=== PATIENT | female | born 1960 | race American Indian/Alaskan Native ===

== ENCOUNTER 2016-09-23 22:36 | Emergency (ER) | payer MEDICARE ==
[2016-09-23] MEDS ORDERED: TYLENOL PO ONE (23:54)
--- NOTE | 2016-09-24 03:39 | Emergency Department Report ---
- General Chief Complaint: Sore Throat Stated Complaint: FLU LIKE SYMPTOMS Time Seen by Provider: 09/24/16 02:41 Source: patient Mode of arrival: Ambulatory Limitations: No Limitations - History of Present Illness Initial Comments: 56 y/o female complain of sore throat and headache x 2 weeks .pt state she having sinus infection and has been taking over the counter robitussin dm and theraflu without any relief MD Complaint: cough, sore throat Onset/Timin -: week(s) Severity: mild Severity scale (0 -10): 5 Quality: aching Consistency: constant Improves With: nothing Worsens With: nothing Associated Symptoms: denies other symptoms - Related Data Home Medications Medication Instructions Recorded Confirmed Last Taken Losartan/Hydrochlorothiazide 1 each PO DAILY 07/28/16 07/28/16 07/28/16 [Losartan-Hctz 50-12.5 mg Tab] Potassium Chloride [Klor-Con M10] 20 meq PO BID 07/28/16 07/28/16 07/28/16 Previous Rx's Medication Instructions Recorded Last Taken Type Cyclobenzaprine [Flexeril] 10 mg PO TID PRN #20 tablet 07/29/16 Unknown Rx guaiFENesin DM [Robitussin Dm] 10 ml PO Q6HR #1 bottle 07/29/16 Unknown Rx Acetaminophen/Codeine [Tylenol #3] 1 tab PO Q6H #15 tablet 09/24/16 Unknown Rx Amoxicillin/K Clav Tab [Augmentin 1 tab PO Q12HR #14 tab 09/24/16 Unknown Rx 875 mg] Allergies Allergy/AdvReac Type Severity Reaction Status Date / Time ibuprofen [From Motrin] Allergy Unknown Verified 07/28/16 21:34 ED Review of Systems ROS: Stated complaint: FLU LIKE SYMPTOMS Other details as noted in HPI Constitutional: denies: chills, fever Eyes: denies: eye pain, eye discharge, vision change ENT: throat pain. denies: ear pain Respiratory: cough. denies: shortness of breath, wheezing Cardiovascular: denies: chest pain, palpitations Endocrine: no symptoms reported Gastrointestinal: denies: abdominal pain, nausea, diarrhea Genitourinary: denies: urgency, dysuria, discharge Musculoskeletal: denies: back pain, joint swelling, arthralgia Skin: denies: rash, lesions Neurological: denies: headache, weakness, paresthesias Psychiatric: denies: anxiety, depression Hematological/Lymphatic: denies: easy bleeding, easy bruising ED Past Medical Hx - Past Medical History Previous Medical History?: Yes Hx Hypertension: Yes Hx GERD: Yes Hx Arthritis: Yes Additional medical history: High cholesterol, anemia - Surgical History Additional Surgical History: Fibroid surgery 2001 - Social History Smoking Status: Current Every Day Smoker - Medications Home Medications: Home Medications Medication Instructions Recorded Confirmed Last Taken Type Losartan/Hydrochlorothiazide 1 each PO DAILY 07/28/16 07/28/16 07/28/16 History [Losartan-Hctz 50-12.5 mg Tab] Potassium Chloride [Klor-Con M10] 20 meq PO BID 07/28/16 07/28/16 07/28/16 History Cyclobenzaprine [Flexeril] 10 mg PO TID PRN #20 tablet 07/29/16 Unknown Rx guaiFENesin DM [Robitussin Dm] 10 ml PO Q6HR #1 bottle 07/29/16 Unknown Rx Acetaminophen/Codeine [Tylenol #3] 1 tab PO Q6H #15 tablet 09/24/16 Unknown Rx Amoxicillin/K Clav Tab [Augmentin 1 tab PO Q12HR #14 tab 09/24/16 Unknown Rx 875 mg] ED Physical Exam - General Limitations: No Limitations General appearance: alert, in no apparent distress - Head Head exam: Present: atraumatic, normocephalic - Eye Eye exam: Present: normal appearance, PERRL Pupils: Present: normal accommodation - ENT ENT exam: Present: mucous membranes moist - Expanded ENT Exam Expanded TM/Canal exam: Effusion: Left TM, Mastoid Tenderness: Right TM, Left TM Mouth exam: Present: normal external inspection Teeth exam: Present: normal inspection Throat exam: Positive: tonsillar erythema, other (post nasal drip ) - Neck Neck exam: Present: normal inspection - Respiratory Respiratory exam: Present: normal lung sounds bilaterally. Absent: respiratory distress - Cardiovascular Cardiovascular Exam: Present: regular rate, normal rhythm. Absent: systolic murmur, diastolic murmur, rubs, gallop - GI/Abdominal GI/Abdominal exam: Present: soft, normal bowel sounds - Extremities Exam Extremities exam: Present: normal inspection - Back Exam Back exam: Present: normal inspection - Neurological Exam Neurological exam: Present: alert, oriented X3 - Psychiatric Psychiatric exam: Present: normal affect, normal mood - Skin Skin exam: Present: warm, dry, intact, normal color. Absent: rash ED Course Vital Signs 09/23/16 09/24/16 23:36 00:02 Temperature 99.3 F Pulse Rate 99 H Respiratory 20 20 Rate Blood Pressure 135/94 O2 Sat by Pulse 97 Oximetry ED Medical Decision Making - Medical Decision Making sinusitis pt has chronic sinus infection pt to follow up with primary doctor Critical care attestation.: If time is entered above; I have spent that time in minutes in the direct care of this critically ill patient, excluding procedure time. ED Disposition Clinical Impression: Sinusitis Qualifiers: Sinusitis location: frontal Chronicity: acute Recurrence: recurrent Qualified Code(s): J01.11 - Acute recurrent frontal sinusitis Disposition: DISCHARGED TO HOME OR SELFCARE Is pt being admited?: No Does the pt Need Aspirin: No Condition: Stable Instructions: Sinusitis (ED) Prescriptions: Acetaminophen/Codeine [Tylenol #3] 1 tab PO Q6H #15 tablet Amoxicillin/K Clav Tab [Augmentin 875 mg] 1 tab PO Q12HR #14 tab Referrals: NEMESIO KELLER MD [Primary Care Provider] - 3-5 Days Forms: Work/School Release Form(ED) Time of Disposition: 03:44
[2016-09-24 03:55] VITALS: BP 104/67
== END 2016-09-24 03:55 | disposition home or self-care (01) ==
LOC: ED 22:36
DX: J01.11 Acute recurrent frontal sinusitis (principal); I10 Essential (primary) hypertension; K21.9 Gastro-esophageal reflux disease without esophagitis; M19.90 Unspecified osteoarthritis, unspecified site; E78.00 Pure hypercholesterolemia, unspecified; F17.200 Nicotine dependence, unspecified, uncomplicated; Z88.6 Allergy status to analgesic agent
CPT/HCPCS: 87116; 87400; 87430; 99283

== ENCOUNTER 2016-12-17 10:07 | Outpatient (CLI) | payer MEDICARE ==
--- NOTE | 2016-12-18 11:49 | Ultrasound Report ---
Diagnostic right mammogram with CAD and targeted right breast ultrasound. History: Six-month followup study. Findings: Comparison is made to the previous right mammogram and ultrasound performed on February 282015. This interval is greater than a six-month followup which was recommended. The nodular opacity in the lower inner quadrant of the right breast has increased slightly in size now measuring 1.1 x 0.9 mm as opposed to 7 mm maximum dimension on the previous study. The posterior margin is slightly lobulated. No other interval changes are seen mammographically. Targeted ultrasound demonstrates a complex lesion which measures 1.4 x 0.6 cm. The size of the lesion is increased significantly by sonographic measurement. The margins are slightly indistinct, but there is no posterior acoustic shadowing. Impression: Both mammographic and sonographic features of this lesion have changed slightly since the previous study and is felt to be indeterminate. BI-RADS code: 4. Recommendation: Biopsy is recommended. This would be amenable to ultrasound guided core biopsy. Comment: These findings were discussed with Dr. Munoz on December 18 at 11:30 AM.
== END 2016-12-17 10:08 | disposition home or self-care (01) ==
LOC: MAMMO 10:07
PROVIDERS: ATTEND Family Medicine
DX: N64.89 Other specified disorders of breast (principal)
CPT/HCPCS: 76642; G0206

== ENCOUNTER 2017-01-16 15:17 | Outpatient (CLI) | payer MEDICARE | END 2017-01-16 15:18 | disposition home or self-care (01) | LOC: LABHHL 15:17 | PROVIDERS: ATTEND Surgery | DX: N60.01 Solitary cyst of right breast (principal) | CPT/HCPCS: 88112 ==

== ENCOUNTER 2020-07-19 14:40 | Outpatient (CLI) | payer MEDICARE ==
--- NOTE | 2020-07-19 15:50 | Mammography Report ---
BILATERAL DIGITAL SCREENING MAMMOGRAM WITH CAD WITH TOMOSYNTHESIS HISTORY: 3D SCREENING MAMMMO TECHNIQUE: Routine digital mammographic imaging performed. Tomosynthesis images were acquired and re viewed. This examination was interpreted with the benefit of Computer-aided Detection analysis. COMPARISON: 06/07/2019, 06/05/2018, 01/16/2017. FINDINGS: Breast Density: predominantly fatty breast parenchymal pattern. Digital CC and MLO views demonstrate no mammographic evidence of malignancy. IMPRESSION: No mammographic evidence of malignancy. If the clinical examination remains stable, recommend bilate ral mammogram in approximately one year. BIRADS 1: Negative. FURTHER INFORMATION: According to the [employer], yearly mammograms are recommend ed starting at age 40 and continuing as long as a woman is in good health. Clinical Breast Exams shou ld be part of a periodic health exam-about every 3 years for women in their 20s and 30s and every yea r for women 40 and over. Breast self exam is an option for women starting in their 20s. Any breast ch yair noted on a breast self exam should be reported promptly to the patient's healthcare provider. Br east MRI is recommended for women with an approximately 20-25% or greater lifetime risk of breast can cer, including women with a strong family history of breast or ovarian cancer and women who have been treated for Hodgkin's disease. A negative Mammography report should not discourage follow up or biopsy of a clinically significant f inding and/or abnormality. Dense breast tissue may obscure small neoplasms. The patient will be entered into a reminder system with a target due date for the next screening mamm ogram. Signer Name: Adrien Kelly MD Signed: 07/19/2020 3:46 PM Workstation Name: [id number]
== END 2020-07-19 14:41 | disposition home or self-care (01) ==
LOC: SPVWC 14:40
PROVIDERS: ATTEND Surgery
DX: Z12.31 Encounter for screening mammogram for malignant neoplasm of breast (principal); N64.89 Other specified disorders of breast
CPT/HCPCS: 77063; 77067